=== PATIENT | female | born 1960 | race Caucasian/White ===

== ENCOUNTER 2018-08-21 18:52 | Emergency (ER) | payer MEDICAID, SELFPAY ==
[~2018-08-21] VITALS: Ht 172.7 cm; Wt 85.4 kg
[2018-08-21 18:55] VITALS: BP 113/72
[2018-08-21] MEDS ORDERED: IBUPROFEN 200 MG TABLET ONE (19:21)
[2018-08-21] MEDS ORDERED: HYDROcodone/APAP 5/325 TABLET ONE (19:26)
[2018-08-21] MEDS ORDERED: IBUPROFEN 200 MG TABLET PO ONE (19:30)
[2018-08-21] MEDS ORDERED: HYDROcodone/APAP 5/325 TABLET PO ONE (19:30)
== END 2018-08-21 20:28 | disposition home or self-care (01) ==
LOC: ED 19:55
DX: S86.011A Strain of right Achilles tendon, initial encounter (principal); X58.XXXA Exposure to other specified factors, initial encounter; Y93.01 Activity, walking, marching and hiking; Y92.89 Other specified places as the place of occurrence of the external cause; Y99.0 Civilian activity done for income or pay
CPT/HCPCS: 29515; 99283